=== PATIENT | male | born 1985 | race Caucasian/White ===

== ENCOUNTER 2019-05-18 20:35 | Emergency (ER) | payer MEDICAID ==
[~2019-05-18] VITALS: Ht 188 cm; Wt 131.5 kg
[2019-05-18 21:11] VITALS: BP 137/94
== END 2019-05-18 23:40 | disposition left against medical advice (07) ==
LOC: ER 20:40
DX: S61.411A Laceration without foreign body of right hand, initial encounter (principal); Z53.21 Procedure and treatment not carried out due to patient leaving prior to being seen by health care provider; W25.XXXA Contact with sharp glass, initial encounter; Y93.89 Activity, other specified; Y92.89 Other specified places as the place of occurrence of the external cause; Y99.8 Other external cause status